=== PATIENT | male | born 1990 | race African-American/Black ===

== ENCOUNTER 2017-09-22 23:13 | Emergency (ER) | payer SELFPAY | END 2017-09-22 23:45 | disposition home or self-care (01) | LOC: ERS 23:13 | DX: K04.7 Periapical abscess without sinus (principal) | CPT/HCPCS: 99282 ==

== ENCOUNTER 2019-10-31 19:29 | Emergency (ER) | payer OTHER ==
[2019-10-31] MEDS ORDERED: Lidocaine 1% (PF) 30 ML VIAL ONE (21:04)
--- NOTE | 2019-10-31 21:14 | RAD ---
RIGHT FINGER TWO VIEW: 10/31/19 HISTORY: Injury. Laceration. COMPARISON: None. FINDINGS: There appears to be some radiopaque debris underneath the fingernail. Laceration along the dorsal asp ect of the distal phalanx of the middle finger. No underlying fracture is appreciated. IMPRESSION: Laceration. No underlying fracture. POS: HOME
== END 2019-10-31 22:31 | disposition home or self-care (01) ==
LOC: ERS 19:29
DX: S61.212A Laceration without foreign body of right middle finger without damage to nail, initial encounter (principal); W20.8XXA Other cause of strike by thrown, projected or falling object, initial encounter
CPT/HCPCS: 12002; J2001